=== PATIENT | female | born 1955 | race Caucasian/White ===

== ENCOUNTER → 2016-09-16 | Outpatient (CLI) | payer OTHER, BC ==
[2016-09-16 14:39] LABS: BASOPHILS # (AUTO) 0.13 10*3/UL; BASOPHILS % (AUTO) 2.3 % (0-1); EOSINOPHILS # (AUTO) 0.11 10*3/UL; HEMOGLOBIN 14.4 g/dL (12.0-16.0); LYMPHOCYTES # (AUTO) 2.06 10*3/uL; MEAN CORPUSCULAR HEMOGLOBIN 29.4 PG (27-31); MEAN CORPUSCULAR HGB CONC 33.5 g/dL (33-37); MEAN CORPUSCULAR VOLUME 87.9 FL (81-99); MEAN PLATELET VOLUME 12.2 FL (7.4-12.2); MONOCYTES # (AUTO) 0.52 10*3/UL (0.3-0.8); MONOCYTES % (AUTO) 9.3 % (5-15); NEUTROPHILS % (AUTO) 49.7 % (50-80); RED BLOOD COUNT 4.89 10^6/uL (4.20-5.40)
[2016-09-16 14:56] LABS: CHOL/HDL RATIO 3.36 RATIO (0-4.0); LDL CHOLESTEROL,CALCULATED 125.4 mg/dL
[2016-09-16 14:57] LABS: BLOOD UREA NITROGEN 26 mg/dL (7-22); BUN/CREATININE RATIO 37.14 (6-20); CALCIUM 10.1 mg/dL (8.7-10.7); EST GLOMERULAR FILTRATION > 60 (>60 ml/min/1.73m(2)); SERUM ALBUMIN 4.7 g/dL (3.5-4.8)
[2016-09-16 16:31] LABS: PLATELET MORPHOLOGY COMMENT NORMAL MORPHOLOGY (NORM); RBC MORPHOLOGY COMMENT NORMAL MORPHOLOGY (NORM); WBC MORPHOLOGY COMMENT NORMAL MORPHOLOGY (NORM)
== END ==
LOC: MOB LAB 13:39
DX: G47.33 Obstructive sleep apnea (adult) (pediatric) (principal); E78.5 Hyperlipidemia, unspecified; R41.9 Unspecified symptoms and signs involving cognitive functions and awareness; I67.9 Cerebrovascular disease, unspecified; E55.9 Vitamin D deficiency, unspecified
CPT/HCPCS: 36415; 80053; 80061; 82306; 84443; 85025

== ENCOUNTER → 2016-10-12 | Outpatient (CLI) | payer OTHER, BC | LOC: MMPC 11:11 | DX: R07.81 Pleurodynia (principal); I67.9 Cerebrovascular disease, unspecified; G47.30 Sleep apnea, unspecified; F32.9 Major depressive disorder, single episode, unspecified; E78.5 Hyperlipidemia, unspecified; Z95.2 Presence of prosthetic heart valve; R41.89 Other symptoms and signs involving cognitive functions and awareness | CPT/HCPCS: 99212; G0463 ==

== ENCOUNTER → 2016-11-11 | Outpatient (CLI) | payer OTHER, BC ==
--- NOTE | 2016-11-11 21:17 | DI ---
LEFT WRIST, 11/11/2016 1:02 PM: Clinical History: Left wrist injury. Previous Exam: None at this facility. 3 views are submitted. There is no acute soft tissue, osseous, or joint abnormality. Reading: Normal left wrist exam.
== END ==
LOC: MOB RAD 14:09
PROVIDERS: ATTEND Physician Assistant Medical
DX: M25.532 Pain in left wrist (principal); S60.212A Contusion of left wrist, initial encounter; W18.09XA Striking against other object with subsequent fall, initial encounter
CPT/HCPCS: 73110; 99213; G0463

== ENCOUNTER → 2016-11-19 | Outpatient (CLI) | payer OTHER, BC ==
--- NOTE | 2016-11-23 06:31 | DI ---
XR WRIST COMPLETE MIN 3VW,11/19/2016 12:22 PM: Clinical History: Pain Previous Exam: None at this facility. Findings: 3 views of the left wrist are obtained, and demonstrate anatomic alignment without fractures. Surroun ding soft tissues are unremarkable. Impression: Normal left wrist.
== END ==
LOC: MOB RAD 12:22
PROVIDERS: ATTEND Nurse Practitioner
DX: S69.92XD Unspecified injury of left wrist, hand and finger(s), subsequent encounter (principal)
CPT/HCPCS: 73110

== ENCOUNTER 2016-11-28 22:42 | Emergency (ER) | payer OTHER, BC ==
[2016-11-28] MEDS ORDERED: Sodium Chloride 0.9% 1,000 ML PRIMARY IV ONE (22:56)
[2016-11-28] MEDS ORDERED: ONDANSETRON 4 MG/2 ML VIAL IVP ONE (22:56)
[2016-11-28] MEDS ORDERED: MORPHINE SULFATE 4 MG/1 ML IVP ONE (22:56)
--- NOTE | 2016-11-28 23:04 | PDOC ---
Nausea/Vomiting/Diarrhea HPI - General Chief Complaint: Nausea / Vomiting / Diarrhea Stated Complaint: nausea vomitting diahrrea Date Seen by Provider: 11/28/16 Time Seen by Provider: 22:58 Source: POSITIVE: Patient Exam Limitations: POSITIVE: No limitations Nurse's Notes Reviewed & Considered: Yes - History of Present Illness Initial Comments: This very pleasant 61-year-old is complaining of generalized abdominal pain with nausea vomiting and diarrhea. Approximately 2 hours prior to presentation here in the emergency room patient developed sudden onset generalized abdominal pain with nausea vomiting and loose stools. She states she has just felt off today and was in her normal state of health yesterday. She denies any headache , she does have a sore throat, denies any chest pain or shortness of breath, no cough, no hematuria or dysuria, no rashes, no fever or chills, she does have sweats. She does have a history of mitral valve replacement and pacemaker placement that was done in 2009 in [place]. She has lived here in [place] since 2010. Body Location Affected: REPORTS: Abdomen Timing: REPORTS: Abrupt Duration: 1-3 hours Severity: Moderate Quality: REPORTS: Cramping, "Pain" Abdominal Pain Onset Location: REPORTS: Suprapubic Abdominal Pain Radiation: REPORTS: RUQ, LUQ, Epigastric, Periumbilical Context: REPORTS: None Modifying Factors: improves with: Nothing Associated Symptoms: REPORTS: Vomiting, Diarrhea Similar Symptoms Previously: No Recent Care Received: REPORTS: Denies Any Prior Injuries Related to Current Complaint?: No - Patient Home Medications Home Medications: Home Medications Multivitamin [Daily Vitamin] 1 tab PO DAILY tab 09/11/12 Tafluprost/Pf [Zioptan 0.0015% Eye Drops] 1 drop OP HS drop 12/08/12 Metoprolol Tartrate 0.5 tab PO QD PRN #15 tab 07/08/16 Sertraline HCl 1 tab PO QD #90 tab 10/04/16 Warfarin Sodium 1.5 - 2 tab PO QD #180 tab 10/04/16 Acetaminophen with Codeine [Tylenol With Codeine #3 Tablet] 1 tab PO Q4-6H #20 tab 11/11/16 - Patient Allergies Allergies/Adverse Reactions: Allergies Allergy/AdvReac Type Severity Reaction Status Date / Time adhesive Allergy Intermediate RASH Verified 11/28/16 23:01 bupropion Allergy Intermediate RASH Verified 11/28/16 23:01 Milk Containing Products Allergy Intermediate DIARRHEA Verified 11/28/16 23:01 diltiazem AdvReac Intermediate ITCHING Verified 11/28/16 23:01 Past Medical History - heen HEENT History: Denies History Cardiovascular History: Pacemaker, Valvular Heart Disease Respiratory History: Denies History Gastrointestinal History: Denies History Genitourinary History: Denies History Endocrine History: Denies History Musculoskeletal History: Denies History Neurological History: Denies History Blood Disorders: Denies History Psychiatric History: Depression Cancer History: Denies History History of MDRO: Unknown Alcohol Use: None Substance Use Type: None Previous Surgical History: Yes Type / Date of Surgery: Mitral valve replacement 2010 followed by pacemaker placement, then a few months later, revision of the pacemaker pouch in February 2011 Significant Family History: No pertinent family hx ROS - Limitations ROS Limitations: No Limitations Constitution: REPORTS: Diaphoresis Cardiovascular: REPORTS: Denies Cardiac Symptoms Respiratory: REPORTS: Denies Resp Symptoms Neurological: REPORTS: Denies Neuro Symptoms Gastrointestinal: REPORTS: Abdominal Pain, Nausea, Vomitting, Diarrhea Endocrine: REPORTS: Denies Symptoms Musculoskeletal: REPORTS: Denies MS Symptoms Genitourinary: REPORTS: Denies Symptoms Eyes: REPORTS: Denies Symptoms ENT: REPORTS: Denies Symptoms Skin: REPORTS: Denies Skin Symptoms Lympathic: REPORTS: Denies Lympathic Symptoms Immunologic: POSITIVE: Denies Symptoms Psychiatric: POSITIVE: Denies Psych Symptoms Nausea/Vomiting/Diarrhea Exam - General Appearance General Appearance: POSITIVE: Alert, Cooperative, No Evidence of Trauma, Moderate Distress - HEENT HEENT: POSITIVE: Head Inspection Nml, Eyes Inspection Nml, Ears Inspection Nml, Nose Inspection Nml, Pharynx Inspect. Nml, PERRL, EOMI, Dry Mucous Membranes - Neck Neck: POSITIVE: Supple, Normal Inspection, Non Tender - Respiratory Respiratory: POSITIVE: No Respiratory Distress, Breath Sounds Normal, Chest Non- Tender - Cardiovascular Cardiovascular: POSITIVE: Regular Rate and Rhythm, Other (Mechanical click) - Chest Chest: POSITIVE: Non Tender - Abdomen Abdomen: Normal Bowel Sounds: (All Quadrants), No Splenomegaly: (All Quadrants) , No Hepatomegaly: (All Quadrants), No Guarding: (All Quadrants), No Rebound: ( All Quadrants), No Palpable Pulse: (All Quadrants), No Palpabale Mass: (All Quadrants), No Distention: (All Quadrants), No Rigidity: (All Quadrants), Tenderness Noted: (All Quadrants) - Back Back: POSITIVE: Normal Inspection - Skin Skin: POSITIVE: Intact, Normal For Race, Warm, Dry, No Rash - Extremities Extremity: Non-Tender: (All Extremities), Normal ROM: (All Extremities), Normal Inspection: (All Extremities), Pelvis Stable: (All Extremities) - Neurological / Psychological Neurological: POSITIVE: Oriented X3, [place] [place] Normal As Tested, Motor Normal, Sensation Normal, 5, 6 N/V/D Progress - Results Reviewed by me Xrays/CTs/US Reviewed by me: Yes Discussed with Radiologist: Yes Lab Results Reviewed: Yes Lab Results:: Laboratory Results 11/28/16 11/29/16 Range/Units 23:05 00:35 WBC 10.96 H (4.8-10.8) 10^3/uL RBC 5.57 H (4.20-5.40) 10^6/uL Hgb 16.6 H (12.0-16.0) g/dL Hct 48.0 H (37.0-47.0) % MCV 86.2 (81-99) FL MCH 29.8 (27-31) PG MCHC 34.6 (33-37) g/dL RDW Std Deviation 49.6 (39-50) fL RDW Coeff of Katelyn 16.0 H (11.5-14.5) % Plt Count 190 (140-350) 10*3/uL MPV 12.3 H (7.4-12.2) FL Immature Gran % (Auto) 0.4 (0-5) % Neut % (Auto) 84.0 H (50-80) % Lymph % (Auto) 7.5 L (10-50) % [place] % (Auto) 7.2 (5-15) % Eos % (Auto) 0.3 (0-8) % Baso % (Auto) 0.6 (0-1) % Immature Gran # (Auto) 0.04 10*3/UL Neut # (Auto) 9.21 10*3/UL Lymph # (Auto) 0.82 10*3/uL [place] # (Auto) 0.79 (0.3-0.8) 10*3/UL Eos # (Auto) 0.03 10*3/UL Baso # (Auto) 0.07 10*3/UL WBC Morphology Comment Normal morphology (NORM) Plt Morphology Comment Normal morphology (NORM) RBC Morph Comment Normal morphology (NORM) Sodium 140 (135-145) meq/L Potassium 3.6 L (3.8-5.2) meq/L Chloride 103 (98-112) meq/L Carbon Dioxide 23 (23-33) meq/L Anion Gap 14 (5-20) BUN 29 H (7-22) mg/dL Creatinine 0.7 (0.50-1.20) mg/dL Estimated GFR > 60 (>60 ml/min/1.73m(2)) BUN/Creatinine Ratio 41.42 H (6-20) Glucose 134 H (78-110) mg/dL Calculated Osmolality 297.0 H (267-292) mOsm/kg Calcium 10.0 (8.7-10.7) mg/dL Magnesium 2.3 (1.6-2.4) mg/dL Total Bilirubin 0.7 (0.3-1.2) mg/dL AST 47 H (8-39) IU/L ALT 46 (9-52) IU/L Alkaline Phosphatase 96 (38-126) IU/L Total Protein 8.8 H (6.1-8.0) g/dL Albumin 5.2 H (3.5-4.8) g/dL Globulin 3.6 (2.50-4.10) g/dL Albumin/Globulin Ratio 1.40 (1.3-2.0) mg/g Lipase 151 (23-300) IU/L Ur Collection Type Clean catch urine Urine Color Yellow Urine Clarity Clear (CLEAR) Urine pH 5.0 (5.0-8.5) Ur Specific [place] <=1.005 (1.005-1.030) Urine Protein Negative (NEG) mg/dl Urine Glucose (UA) Negative (NEG) mg/dL Urine Ketones Trace (NEG) Urine Occult Blood Negative (NEG) Urine Nitrate Negative (NEG) Urine Bilirubin Negative (NEG) Urine Urobilinogen 0.2 (0.2) EU/dL Ur Leukocyte Esterase Negative (NEG) Ur Culture Indicated? Culture not set - Patient's Progress Pain Medication Addressed: POSITIVE: Yes Re-examine Time: 01:33 Status: POSITIVE: Improved MDM / ED Course: Patient was examined, an IV started, blood drawn and sent to the lab for studies , radiographic examinations were obtained. Patient received 2 L of normal saline, Zofran, and morphine sulfate. She had no further episodes of emesis here in the emergency department. Findings: CBC shows hemoconcentration with a white count of 11 hemoglobin and hematocrit were also elevated. Comprehensive metabolic panel shows BUN to be 29. CT scan of her abdomen shows no acute into her abdominal abnormalities. There is an incidental finding of a hypodense lesion in her left kidney consistent with renal cyst. Assessment: #1 nausea vomiting and diarrhea consistent with gastroenteritis, probable viral. #2 left renal cyst. Plan: Discharge home clear liquids tonight through noon tomorrow advance diet as tolerated. I suggested the BRAT diet. Zofran is dispensed #2 and Zofran prescribed. She has directions to follow-up with primary care physician. - Consult Counseled: POSITIVE: Patient, Family, RE: Lab Results, RE: Radiology Results, RE : DX, RE: Need for F/U Patient Care Time - Estimated PCT Patient Care Time (In Minutes): 45 Vital Signs - VS Reviewed Vital Signs Reviewed: Yes Discharge Clinical Impression: Gastroenteritis, Dehydration Discharge Disposition: Discharged to Home Condition: Stable Patient Instructions Given at Discharge: Dehydration (ED), Gastroenteritis (ED)
[2016-11-28 23:07] LABS: BASOPHILS # (AUTO) 0.07 10*3/UL; BASOPHILS % (AUTO) 0.6 % (0-1); EOSINOPHILS # (AUTO) 0.03 10*3/UL; EOSINOPHILS % (AUTO) 0.3 % (0-8); HEMOGLOBIN 16.6 g/dL (12.0-16.0); LYMPHOCYTES # (AUTO) 0.82 10*3/uL; MEAN CORPUSCULAR HEMOGLOBIN 29.8 PG (27-31); MEAN CORPUSCULAR HGB CONC 34.6 g/dL (33-37); MEAN CORPUSCULAR VOLUME 86.2 FL (81-99); MEAN PLATELET VOLUME 12.3 FL (7.4-12.2); MONOCYTES # (AUTO) 0.79 10*3/UL (0.3-0.8); MONOCYTES % (AUTO) 7.2 % (5-15); NEUTROPHILS # (AUTO) 9.21 10*3/UL; RED BLOOD COUNT 5.57 10^6/uL (4.20-5.40)
[2016-11-28] MEDS ORDERED: Sodium Chloride 0.9% 1,000 ML ONE (23:07)
[2016-11-28 23:18] LABS: BLOOD UREA NITROGEN 29 mg/dL (7-22); BUN/CREATININE RATIO 41.42 (6-20); EST GLOMERULAR FILTRATION > 60 (>60 ml/min/1.73m(2)); MAGNESIUM 2.3 mg/dL (1.6-2.4); SERUM ALBUMIN 5.2 g/dL (3.5-4.8)
[2016-11-28 23:21] LABS: PLATELET MORPHOLOGY COMMENT NORMAL MORPHOLOGY (NORM); RBC MORPHOLOGY COMMENT NORMAL MORPHOLOGY (NORM); WBC MORPHOLOGY COMMENT NORMAL MORPHOLOGY (NORM)
[2016-11-29 00:50] LABS: BILIRUBIN,URINE NEGATIVE (NEG); CLARITY,URINE CLEAR (CLEAR); COLOR,URINE YELLOW; GLUCOSE, URINE (UA) NEGATIVE (NEG); NITRATE,URINE NEGATIVE (NEG); OCCULT BLOOD,URINE NEGATIVE (NEG); PROTEIN,URINE NEGATIVE (NEG); UROBILINOGEN,URINE 0.2 EU/dL (0.2)
[2016-11-29 00:51] LABS: URINE SAMPLE TYPE CLEAN CATCH URINE
[2016-11-29] MEDS ORDERED: ONDANSETRON 4 MG/2 ML VIAL IVP ONE (01:09)
[2016-11-29] MEDS ORDERED: MORPHINE SULFATE 4 MG/1 ML IVP ONE (01:09)
[2016-11-29] MEDS ORDERED: Sodium Chloride 0.9% 1,000 ML PRIMARY IV ONE (01:27)
[2016-11-29 01:46] VITALS: TEMP 96.2
[2016-11-29] MEDS ORDERED: Ondansetron ODT Tab 8 MG TAB PO ONE (01:54)
[2016-11-29] MEDS ORDERED: Ondansetron ODT Tab 8 MG TAB PO SCH (02:00)
[2016-11-29 02:13] VITALS: RESP 16
--- NOTE | 2016-11-29 06:08 | DI ---
HISTORY: Abdominal pain with nausea, vomiting and diarrhea. COMPARISON: None available. TECHNIQUE: Contiguous transaxial computed tomographic images were obtained of the abdomen and pelvis per routine protocol with IV contrast. Coronal and sagittal reformat images were performed. FINDINGS: LUNG BASES: Clear. INFERIOR MEDIASTINUM: Unremarkable. LIVER: Normal in size and attenuation with no focal abnormalities. GALLBLADDER AND BILE DUCTS: Gallbladder is normal in appearance with no gallbladder wall thickening or pericholecystic fluid. No biliary dilatation. SPLEEN: Normal in size and attenuation with no focal abnormalities. PANCREAS: Normal in size and attenuation with no focal abnormalities. ADRENALS: Normal in size and attenuation with no focal abnormalities. : There is a 1.7 cm low-density lesion within the left kidney which is most likely a cyst. No dorothy dence of urinary obstruction or obstructing urinary calculi. Ureters are normal throughout their cou rse. Urinary bladder is within normal limits. GI: No evidence of bowel obstruction or focal inflammation. No focal bowel wall thickening. There is no appendicitis. PELVIS: Within normal limits with no mass identified. VESSELS: Aorta is normal in size with no evidence of aneurysm or rupture. BONES: No acute bony abnormality. No suspicious osteolytic or osteoblastic lesion. SOFT TISSUES: Unremarkable. IMPRESSION: 1. No acute abdominal or pelvic process identified. 2. There is a low-density lesion within the left kidney which is most likely a cyst. NOTIFICATION: The above findings were phoned to Debbie in the ER Department on 11/29/2016 at 03:15 AM EST.
== END 2016-11-29 02:02 | disposition home or self-care (01) ==
LOC: ER 22:42
DX: K52.9 Noninfective gastroenteritis and colitis, unspecified (principal); E86.0 Dehydration; R11.2 Nausea with vomiting, unspecified; R19.7 Diarrhea, unspecified; J02.9 Acute pharyngitis, unspecified; R10.84 Generalized abdominal pain; Z95.4 Presence of other heart-valve replacement; Z95.0 Presence of cardiac pacemaker; Z79.01 Long term (current) use of anticoagulants
CPT/HCPCS: 74177; 80053; 81003; 83690; 83735; 85025; 96361; 96365; 96375; 99283 ×2; J2270 ×2; J2405 ×2; Q0162; J7030